=== PATIENT | male | born 1960 | race Caucasian/White ===

== ENCOUNTER 2022-02-14 03:30 | Inpatient (IN) | payer OTHER ==
[~2022-02-14] VITALS: Ht 170.2 cm; Wt 93.9 kg
[2022-02-14 06:04] LABS: BASOPHILS % 0.1 % (0.0-2.0); HEMATOCRIT. 44.7 % (42.0-52.0); HEMOGLOBIN. 15.1 g/dL (14.0-18.0); LYMPHOCYTES % 7.7 % (20.0-50.0); MEAN CORPUSCULAR HEMOGLOBIN 25.6 pg (28.0-32.0); MEAN CORPUSCULAR VOLUME 75.7 fL (80.0-94.0); MEAN PLATELET VOLUME 9.3 fl (7.4-10.4); MONOCYTES % 2.5 % (2.0-8.0); NEUTROPHILS % 89.7 % (40.0-76.0); PLATELET 212 x1000/uL (130-400); RED CELL DISTRIBUTION WIDTH 14.7 % (11.6-14.6)
[2022-02-14 06:15] LABS: CHLORIDE 99 mEq/L (98-107); PROTHROMBIN TIME 11.1 sec (9.6-11.0)
[2022-02-14] MEDS ORDERED: NITROGLYCERIN 50MG PREMIX 250 ML IV ONE (10:15)
[2022-02-14] MEDS ORDERED: SODIUM CHLORIDE 0.9% 1,000 ML IV ONE (11:15)
[2022-02-14] MEDS ORDERED: ACETAMINOPHEN 325MG TABLET PO ONE (11:15)
[2022-02-14] MEDS ORDERED: ENOXAPARIN 80MG/0.8ML SYR SUBCUT STA (12:58)
[2022-02-14] MEDS ORDERED: ENOXAPARIN 80MG/0.8ML SYR SUBCUT NR (15:00)
[2022-02-14 19:53] LABS: CLARITY URINE CLEAR (CLEAR); COLOR URINE YELLOW (YELLOW); KETONES URINE NEGATIVE (NEGATIVE); LEUKOCYTE ESTERASE URINE NEGATIVE (NEGATIVE); NITRITE URINE NEGATIVE (NEGATIVE); OCCULT BLOOD URINE NEGATIVE (NEGATIVE); PH URINE 5.5 (4.5-8.0); PROTEIN URINE NEGATIVE (NEGATIVE); SPECIFIC GRAVITY URINE 1.071 (1.005-1.030)
[2022-02-14] MEDS ORDERED: IOHEXOL-350 100 ML BOTTLE ONE (22:26)
[2022-02-15] VITALS: BP 155/85
[2022-02-15] MEDS ORDERED: ACETAMINOPHEN 325MG TABLET PO PRN (01:15)
[2022-02-15 04:00] VITALS: BP 150/85
[2022-02-15 06:37] LABS: BASOPHILS % 0.6 % (0.0-2.0); EOSINOPHILS % 3.8 % (0.0-5.0); HEMATOCRIT. 42.2 % (42.0-52.0); HEMOGLOBIN. 14.1 g/dL (14.0-18.0); LYMPHOCYTES % 26.8 % (20.0-50.0); MEAN CORPUSCULAR HEMOGLOBIN 25.6 pg (28.0-32.0); MEAN CORPUSCULAR VOLUME 76.8 fL (80.0-94.0); MEAN PLATELET VOLUME 9.7 fl (7.4-10.4); MONOCYTES % 7.2 % (2.0-8.0); NEUTROPHILS % 61.6 % (40.0-76.0); PLATELET 194 x1000/uL (130-400); RED BLOOD CELL COUNT 5.49 mill/uL (4.7-6.1); RED CELL DISTRIBUTION WIDTH 14.7 % (11.6-14.6)
[2022-02-15 07:13] LABS: CHLORIDE 110 mEq/L (98-107)
[2022-02-15 07:27] LABS: HDL CHOLESTEROL 45 mg/dL (40-59); LDL CHOLESTEROL 67 mg/dL (5-100); T4 FREE 1.09 ng/dL (0.76-1.46)
[2022-02-15] MEDS ORDERED: PANTOPRAZOLE 40MG DR TABLET PO SCH (07:40)
[2022-02-15 08:00] VITALS: BP 150/81
[2022-02-15] MEDS ORDERED: CEFTRIAXONE 1,000 MG in DEXTROSE 5% WATER 50 ML IV SCH (08:00)
[2022-02-15] MEDS ORDERED: ENOXAPARIN 40MG/0.4ML SYR SUBCUT SCH (09:00)
[2022-02-15] MEDS ORDERED: ATORVASTATIN CALCIUM 40MG TABLET PO SCH (09:00)
[2022-02-15] MEDS ORDERED: ASPIRIN 81MG EC TABLET PO SCH (09:00)
[2022-02-15 12:00] VITALS: BP 155/81
[2022-02-15] MEDS ORDERED: DEXTROSE 50% WATER 50ML SYRINGE IV PRN (13:30)
[2022-02-15] MEDS ORDERED: INSULIN LISPRO 100 UNITS/ML SUBCUT SCH (14:00)
[2022-02-15] MEDS ORDERED: BLOOD SUGAR DIAGNOSTIC STRIP TEST SCH (14:00)
[2022-02-15 16:00] VITALS: BP 155/81
[2022-02-15 19:22] VITALS: BP 154/74
[2022-02-15] MEDS ORDERED: ENOXAPARIN 30MG/0.3ML SYR SUBCUT SCH (21:00)
== END 2022-02-15 20:30 | disposition home or self-care (01) | DRG 199 ==
LOC: ER 03:42 → EDBD 03:42 → 7WST 17:33 → EDBEDREQTM 17:41 → EDBEDREQ 17:41 → ENRESERV 22:38
PROVIDERS: ADMIT Internal Medicine; ATTEND Internal Medicine
DX: I10 Essential (primary) hypertension (principal); E87.1 Hypo-osmolality and hyponatremia; I69.351 Hemiplegia and hemiparesis following cerebral infarction affecting right dominant side; D72.829 Elevated white blood cell count, unspecified; E11.9 Type 2 diabetes mellitus without complications; E66.9 Obesity, unspecified; R42 Dizziness and giddiness; R11.2 Nausea with vomiting, unspecified; Z68.32 Body mass index [BMI] 32.0-32.9, adult; R00.0 Tachycardia, unspecified
CPT/HCPCS: 36415; 70551; 71045; 71275; 80053; 80061; 81003; 82962; 84439; 84443; 84484; 85025; 85379; 93005; 93306; 93880; 99285; J0696; J1650; J3490; J7030; J7060; Q9967